=== PATIENT | female | born 1985 | race African-American/Black ===

== ENCOUNTER 2022-01-16 07:07 | Outpatient (REF) | payer OTHER, SELFPAY ==
--- NOTE | ~2022-01-16 | XR_ITS ---
EXAMINATION: XR CHEST 2 VIEWS CLINICAL INFORMATION: Cough. COMPARISON: Chest radiographs dated 08/25/2019. TECHNIQUE: Frontal and lateral views of the chest were obtained. FINDINGS: The heart, great vessels, pulmonary vasculature and mediastinum are normal. The lungs show no focal infiltrate, effusion or pneumothorax. There is no acute osseous abnormality. XR/XR chest 2V IMPRESSION: No active cardiopulmonary disease.
== END 2022-01-16 07:08 | disposition home or self-care (01) ==
LOC: HO.XRAY 07:07
PROVIDERS: PCP Internal Medicine; Visit Provider Nurse Practitioner Family
DX: R05.9 Cough, unspecified (principal)
CPT/HCPCS: 71046

== ENCOUNTER 2022-03-12 07:14 | Outpatient (REF) | payer OTHER, SELFPAY ==
[2022-03-12 07:29] LABS: MANUAL DIFF FLAG NO
[2022-03-12 07:42] LABS: Basophils Absolute Auto 0.1 X10*3/uL (0.0-0.2); Basophils Percent Auto 0.6 % (0-2); Eosinophils Absolute Auto 0.6 X10*3/uL (0.0-0.4); Eosinophils Percent Auto 7.1 % (0-4); Hematocrit 36.6 % (37.0-47.0); Hemoglobin 12.5 g/dl (12.0-16.0); Imm Gran Abs Auto 0.03 X10*3/uL (0.00-0.03); Imm Gran Pct Auto 0.4 % (0.0-0.4); Lymphocytes Absolute Auto 2.9 X10*3/uL (1.2-4.9); Lymphocytes Percent Auto 33.9 % (20-40); Mean Corpuscular HGB Conc 34.2 g/dl (31.0-35.0); Mean Corpuscular Hemoglobin 30.6 pg (27.0-33.0); Mean Corpuscular Volume 89.5 fL (80.0-98.0); Mean Platelet Volume 9.1 fL (9.4-12.3); Monocytes Absolute Auto 0.4 X10*3/uL (0.1-1.2); Monocytes Percent Auto 5.1 % (2-11); Neutrophils Absolute Auto 4.5 x10*3/uL (2.0-8.3); Neutrophils Percent Auto 52.9 % (45-73); Platelet Count 357 X10*3/uL (160-400); Red Blood Count 4.09 X10*6/uL (4.20-5.50); Red Cell Distribution Width 12.2 % (11.0-16.0); White Blood Count 8.5 X10*3/uL (4.8-10.8)
[2022-03-12 08:19] LABS: Alanine Aminotransferase 21 U/L (0-31); Alkaline Phosphatase 61 U/L (39-117); Anion Gap 10 (12-20); Aspartate Amino Transferase 35 U/L (5-31); Bilirubin Total 0.5 mg/dL (0.0-1.0); Blood Urea Nitrogen 8 mg/dL (9-16); Carbon Dioxide 23 mmol/L (22-29); Chloride 110 mmol/L (96-108); Cholesterol 177 mg/dL; Estimated Glomerular Filt Rate > 60; Glucose Fasting 99 mg/dL (60-99); HDL Cholesterol 45 mg/dL; LDL Cholesterol Calculated 117 mg/dl; Potassium 4.2 mmol/L (3.3-5.1); Sodium 139 mmol/L (135-145); Total Protein 7.1 g/dL (6.5-8.0); Triglycerides 75 mg/dL
[2022-03-12 08:39] LABS: Thyroid Stimulating Hormone 1.38 uIU/mL (0.32-4.0); Vitamin D 25-OH Total 12.1 ng/mL (>30)
== END 2022-03-12 07:15 | disposition home or self-care (01) ==
LOC: HO.LAB 07:14
PROVIDERS: PCP Internal Medicine; Visit Provider Internal Medicine
DX: J45.40 Moderate persistent asthma, uncomplicated (principal); E66.9 Obesity, unspecified; R53.83 Other fatigue; Z68.33 Body mass index [BMI] 33.0-33.9, adult
CPT/HCPCS: 36415; 80053; 80061; 82306; 84443; 85025

== ENCOUNTER 2022-11-18 16:11 | Outpatient (REF) | payer OTHER, SELFPAY ==
[2022-11-18 17:19] LABS: Anion Gap 12 (12-20); Blood Urea Nitrogen 13 mg/dL (9-16); Calcium 9.7 mg/dL (8.4-10.2); Carbon Dioxide 26 mmol/L (22-29); Chloride 107 mmol/L (96-108); Estimated Glomerular Filt Rate > 60; Glucose Random 88 mg/dL (60-115); Potassium 4.3 mmol/L (3.3-5.1); Sodium 141 mmol/L (135-145)
[2022-11-18 17:35] LABS: Vitamin D 25-OH Total 10.7 ng/mL (>30)
[2022-11-18 17:50] LABS: Folate 12.3 ng/mL (> or = 4.0); Vitamin B12 571 pg/mL (200-900)
== END 2022-11-18 16:12 | disposition home or self-care (01) ==
LOC: HO.LAB 16:11
PROVIDERS: PCP Internal Medicine; Visit Provider Nurse Practitioner Family
DX: R53.83 Other fatigue (principal); I10 Essential (primary) hypertension
CPT/HCPCS: 36415; 80048; 82306; 82607; 82746

== ENCOUNTER → 2023-01-25 09:11 | Outpatient (BNVA) | payer OTHER, SELFPAY | PROVIDERS: PCP Internal Medicine; Visit Provider Advanced Practice Midwife ==

== ENCOUNTER 2023-01-25 11:29 | Outpatient (REF) | payer OTHER, SELFPAY ==
--- NOTE | ~2023-01-25 | US_ITS ---
EXAMINATION: US OBSTETRICAL ULTRASOUND CLINICAL INFORMATION: Early with Nexplanon. Z33.1 COMPARISON: Pelvic ultrasound 02/07/2018. LMP: Unknown. TECHNIQUE: Ultrasound of the maternal pelvis is performed using transabdominal transducer. M-mode Doppler is also performed. FINDINGS: There is a single intrauterine gestational sac with visible yolk sac, embryo/fetus, and cardiac activity. There is no significant subchorionic hemorrhage or hematoma. HR: 156 beats per minute. CRL (crown rump length): 1.01 cm (7 weeks 1 day +/- 4 days). SARAH (estimated date of delivery): 09/12/2023 +/- 4 days. MATERNAL ADNEXA: The right maternal ovary measures 3.7 x 2.1 x 2.8 cm. Small follicle or corpus luteum within right ovary 2.3 x 1.9 x 2.0 cm. No surrounding hyperemia. The left maternal ovary measures 2.8 x 1.6 x 2.6 cm. There is no significant maternal adnexal mass. No maternal pelvic ascites. US/US OB <= 14 weeks fetus IMPRESSION: 1. Single intrauterine gestation with ultrasound gestational age of 7 weeks 1 day +/- 4 days. 2. Estimated date of delivery is 09/12/2023 +/- 4 days. 3. No maternal adnexal mass or pelvic ascites.
== END 2023-01-25 11:30 | disposition home or self-care (01) ==
LOC: HO.HMGCX 11:29
PROVIDERS: PCP Internal Medicine; Visit Provider Advanced Practice Midwife
DX: O09.529 Supervision of elderly multigravida, unspecified trimester (principal); O99.210 Obesity complicating pregnancy, unspecified trimester; O16.9 Unspecified maternal hypertension, unspecified trimester; Z30.46 Encounter for surveillance of implantable subdermal contraceptive; Z68.33 Body mass index [BMI] 33.0-33.9, adult; Z79.899 Other long term (current) drug therapy
CPT/HCPCS: 11982; 76801; 99202

== ENCOUNTER 2023-10-01 14:29 | Outpatient (AMB) | payer OTHER, SELFPAY ==
--- NOTE | 2023-10-01 14:35 | MHC.PC.OV ---
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: No Accompanied by: Self / Same As Patient Allergies No Known Allergies Allergy (Mild, Verified 04/06/23 16:27) NOT APPLICABLE Medication List - Last Reconciled 10/01/23 by RAMSEY Ji albuterol sulfate 90 mcg/actuation (ProAir HFA) 2 puffs inhalation Q4-6H PRN enalapril maleate 20 mg PO DAILY fluticasone propionate 44 mcg/actuation (Flovent HFA) 1 puff inhalation BID 30 days labetalol 600 mg PO TID loratadine (Allergy Relief (loratadine)) 10 mg PO DAILY PRN PNV,calcium 58-akqw-jyjmp acid 27 mg iron- 1 mg ( Vitamins Plus Low Iron) 1 tab PO DAILY Tobacco use date assessed: 12/04/22 HPI HPI Comments History of Present Illness Details 38-year old female past medical history significant for asthma and hypertension. Patient of last seen in April. Patient presents today for hospital discharge follow-up patient underwent primary section on 08/14/2023. Patient reports a few days later, bp shot up and she was kept in the hospital x1 week and received treatment with magnesium and was discharged trt with mag. Patient states when she went to follow up, her B/P was very elevated and she was re-admitted. Patient was readmitted for sustained severe range blood pressures in the setting of known superimposed preeclampsia with severe features. patient was treated with IV labetalol, hydralazine and nifedipine. Patient's blood pressure medication was titrated up to 600 mg labetalol t.i.d. and 5 mg enalapril was added. Patient currently on Labetolol 600 TID and Enalapril 20mg daily. Patient states b/p's have been running 150-160's/90's-100's at home. Patient states she can feel when her pressure is high, occasional headaches, pressure in her neck and her ears get really hot. Denies visual changes and abdominal pain. Patient also has hx of irregular heartbeat but has been feeling palpitations daily, denies lightheadedness,dizziness. Denies chest pain, however reports the other day she felt like a squeez in her chest and a quick release. Of Note patient states she was on a very low dose b/p medication and throughout her she was not on any b/p medication. [facility] Medical History Chronic cough Class 1 obesity with body mass index (BMI) of 33.0 to 33.9 in adult Fatigue Moderate persistent asthma Surgical History No pertinent past surgical history Family History Mother Diabetes Hypertension Lymphoma Father No problems noted. Social History Housing: Apartment Patient Tobacco Use Status: Never used Tobacco e-Cigarette/Vaping Use: Never Used Second Hand Smoke Exposure: No service: No Current occupational status: employed Current occupational exposures/hazards: No Cognitive needs: No Hearing needs: No Vision needs: No Questionnaire Thrive Questionnaire Date Thrive assessed: 12/04/22 ORALIA-7 AMB Questionnaire ORALIA-7 Date ORALIA - 7 assessed: 12/04/22 Source: Developed by Drs. Monty Soler, Veronica Blake, Nathaniel Augustine and colleagues, with an educational poncho from [employer]. Review of Systems Const Denies chills, Denies fatigue, Denies fever(s) and Denies poor appetite Eyes Denies no additional complaints ENT Reports Normal hearing present Card Denies chest pain, Denies syncope, Denies rapid heart rate and Denies dyspnea Resp Denies cough and Denies dyspnea GI Denies change in stool character, Denies constipation, Denies diarrhea, Denies nausea and Denies vomiting Denies urinary frequency, Denies dysuria and Denies urinary urgency Neuro Reports Normal hearing present, Denies confusion and Denies syncope Psych Denies confusion Endo Denies fatigue Physical exam (Primary Care) Vital Signs: Last Vital Signs Pulse 90 10/01/23 14:36 BP 150/98 H 10/01/23 14:36 Pulse Ox 98 10/01/23 14:36 Oxygen Delivery Method Room Air 10/01/23 14:36 BMI result Body Mass Index 31.2 Tobacco/Smoking Status: Tobacco use Status Tobacco use date assessed 12/04/22 10/01/23 14:36 Patient Tobacco Use Status Never used Tobacco 10/01/23 14:36 Tobacco use type 01/25/23 08:32 e-Cigarette/Vaping Use Never Used 10/01/23 14:36 Thrive Assessment: Date of Thrive Assessment Date Thrive assessed 12/04/22 10/01/23 14:36 Const General: No confusion Orientation/consciousness: No confusion HENMT Head: Yes normocephalic and Yes atraumatic Eyes Conjunctivae: conjunctivae normal Chest Chest palpation & inspection: normal inspection of the chest Resp Effort & Inspection: normal respiratory effort Auscultation: clear to auscultation bilaterally, no crackles, no rhonchi and no wheezes Cardio Rate: regular rate Rhythm: regular rhythm Heart sounds: S1 normal heart sound present and S2 normal heart sound present GI Inspection: Yes normal to inspection Neuro General: No confusion Cranial nerves: Yes Normal hearing present Extrem General: No edema Assessment and Plan Assessment & Plan (1) Hypertension: Code(s): I10 - Essential (primary) hypertension Plan: Enalapril increased to 30mg daily. Continue on labetalol 600mg TID. Follow low salt diet and exercise. 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 Referral entered to cardiology for uncontrolled HTN and palpitations. Patient agreeable to plan of care. Plan Follow up in 1 month with pcp or sooner if needed. Orders: Orders ECG 3 day holter monitor 10/01/23 R00.2 - Palpitations Comprehensive Met. Panel 10/01/23 I10 - Essential (primary) hypertension Complete Blood Count Auto Diff 10/01/23 Z13.0 - Encounter for screening for diseases of the blood and blood-forming organs and certain disorders involving the immune mechanism ECG 12 lead EKG 10/01/23 I10 - Essential (primary) hypertension, R00.2 - Palpitations Referrals Cardiology Referral I10 - Essential (primary) hypertension, R00.2 - Palpitations Medications: New enalapril maleate 10 mg PO DAILY 30 tabs 3RF enalapril maleate 20 mg PO DAILY 30 tabs 3RF Coding Level of Care Code Est Pt Level 3 (08072) Diagnoses Hypertension I10 Palpitations R00.2
[2023-10-01 14:36] VITALS: BP 150/98; PULSE 90; O2SAT 98; BMI 31.2
== END 2023-10-01 15:01 | disposition home or self-care (01) ==
PROVIDERS: PCP Internal Medicine; Visit Provider Nurse Practitioner Family
DX: I10 Essential (primary) hypertension (principal); R00.2 Palpitations; J45.40 Moderate persistent asthma, uncomplicated
CPT/HCPCS: 99213

== ENCOUNTER → 2023-10-11 12:00 | Outpatient (REF) | payer OTHER, SELFPAY ==
--- NOTE | 2023-10-11 12:04 | HM_ITS ---
Conclusion: 1. Patient was monitored for total period of 2 days and 20 hours 2. Baseline was normal sinus rhythm with average heart rate of 75 beats per minute 3. No significant pauses noted 4. Occasional PACs noted 5. No patient reported events MTDD
--- NOTE | 2023-10-11 12:04 | ECG_ITS ---
Test Reason : PALPITATION HTN Blood Pressure : / mmHG Vent. Rate : 068 BPM Atrial Rate : 068 BPM P-R Int : 162 ms QRS Dur : 082 ms QT Int : 410 ms P-R-T Axes : 034 019 031 degrees QTc Int : 435 ms Normal sinus rhythm Normal ECG When compared with ECG of 29-JUL-2014 13:01, No significant change was found Referred By: Meenu Allison Electronically Signed By:Virgilio Mina
[2023-10-11 12:29] LABS: MANUAL DIFF FLAG NO
[2023-10-11 13:48] LABS: Basophils Percent Auto 0.5 % (0-2); Eosinophils Absolute Auto 0.3 X10*3/uL (0.0-0.4); Eosinophils Percent Auto 4.3 % (0-4); Hematocrit 35.7 % (37.0-47.0); Hemoglobin 11.8 g/dl (12.0-16.0); Imm Gran Abs Auto 0.02 X10*3/uL (0.00-0.03); Imm Gran Pct Auto 0.3 % (0.0-0.4); Lymphocytes Absolute Auto 1.7 X10*3/uL (1.2-4.9); Lymphocytes Percent Auto 27.5 % (20-40); Mean Corpuscular HGB Conc 33.1 g/dl (31.0-35.0); Mean Corpuscular Hemoglobin 29.1 pg (27.0-33.0); Mean Corpuscular Volume 88.1 fL (80.0-98.0); Mean Platelet Volume 9.8 fL (9.4-12.3); Monocytes Absolute Auto 0.3 X10*3/uL (0.1-1.2); Monocytes Percent Auto 4.8 % (2-11); Neutrophils Absolute Auto 3.9 x10*3/uL (2.0-8.3); Neutrophils Percent Auto 62.6 % (45-73); Platelet Count 351 X10*3/uL (160-400); Red Blood Count 4.05 X10*6/uL (4.20-5.50); Red Cell Distribution Width 12.8 % (11.0-16.0); White Blood Count 6.2 X10*3/uL (4.8-10.8)
[2023-10-11 14:15] LABS: Alanine Aminotransferase 28 U/L (0-31); Albumin Level 4.5 g/dL (3.5-5.0); Alkaline Phosphatase 93 U/L (39-117); Anion Gap 11 (12-20); Aspartate Amino Transferase 39 U/L (5-31); Bilirubin Total 0.4 mg/dL (0.0-1.0); Blood Urea Nitrogen 15 mg/dL (9-16); Calcium 9.8 mg/dL (8.4-10.2); Carbon Dioxide 24 mmol/L (22-29); Chloride 110 mmol/L (96-108); Estimated Glomerular Filt Rate > 60; Glucose Random 80 mg/dL (60-115); Potassium 4.2 mmol/L (3.3-5.1); Sodium 141 mmol/L (135-145)
== END ==
LOC: HO.CARD 12:00
PROVIDERS: PCP Internal Medicine; Visit Provider Nurse Practitioner Family
DX: Z13.0 Encounter for screening for diseases of the blood and blood-forming organs and certain disorders involving the immune mechanism (principal); R00.2 Palpitations; I10 Essential (primary) hypertension
CPT/HCPCS: 36415; 80053; 85025; 93005; 93242

== ENCOUNTER → 2023-10-11 12:04 | Outpatient (BNV) | payer OTHER, SELFPAY | PROVIDERS: PCP Internal Medicine; Visit Provider Internal Medicine Cardiovascular Disease | DX: R00.2 Palpitations (principal) | CPT/HCPCS: 93010; 93244 ==

== ENCOUNTER 2024-01-03 12:50 | Outpatient (AMB) | payer OTHER, SELFPAY ==
--- NOTE | 2024-01-03 12:57 | MHC.OFFVIS ---
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 Intake Note: New patient with ekg c/o flutters at times Lamp Wirer Required: No Allergies No Known Allergies Allergy (Mild, Verified 04/06/23 16:27) NOT APPLICABLE Medication List - Last Reconciled 01/03/24 by Justin Villasenor MD albuterol sulfate 90 mcg/actuation (ProAir HFA) 2 puffs inhalation Q4-6H PRN enalapril maleate 10 mg PO DAILY fluticasone propionate 44 mcg/actuation (Flovent HFA) 1 puff inhalation BID 30 days labetalol 600 mg (2 x 300 mg) PO TID 90 days loratadine (Allergy Relief (loratadine)) 10 mg PO DAILY PRN nifedipine ER 30 mg PO DAILY 30 days PNV,calcium 75-tewb-cracx acid 27 mg iron- 1 mg ( Vitamins Plus Low Iron) 1 tab PO DAILY HPI HPI Comments History of Present Illness Details Thank you for referring Mari in cardiology consultation today for management of high blood pressure. She has a pleasant 38-year-old woman who just had her 4th child about 4 months ago. She had mild hypertension prior to that being on low-dose lisinopril therapy. However after her childbirth she was noted to have significantly elevated blood pressure consistent with preeclampsia/eclampsia. Patient will was then treated with medicines and then came for follow-up and was noted to have markedly elevated blood pressure and had to be admitted to the hospital for about 7 days. She was then started on the regimen that she is currently on. She has been referred here for further management of blood pressure. She says gradually since starting this medications a blood pressure have down trended. She had history of fluttering in the chest and elevated heart rate although Holter monitor done in October showed average heart rate of 75 beats per minute with occasional PACs. She says overall she has been doing better. She has not had any major symptoms of irregular heartbeat or palpitations. She denies any lightheadedness, syncope. No exertional symptoms. 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 She has no heart failure symptoms. [facility] Medical History Class 1 obesity with body mass index (BMI) of 33.0 to 33.9 in adult Chronic cough Fatigue Moderate persistent asthma Surgical History No pertinent past surgical history Family History Mother Diabetes Hypertension Lymphoma Father No problems noted. Social History Housing: Apartment Patient Tobacco Use Status: Never used Tobacco e-Cigarette/Vaping Use: Never Used Second Hand Smoke Exposure: No service: No Current occupational status: employed Current occupational exposures/hazards: No Cognitive needs: No Hearing needs: No Vision needs: No Review of Systems Const Denies chills, Denies daytime sleepiness, Denies fatigue, Denies fever(s), Denies frequent falls, Denies poor appetite, Denies snoring, Denies stops breathing during sleep, Denies weakness, Denies weight gain and Denies weight loss Eyes Denies loss of vision ENT Denies dizziness and Denies hearing loss Card Denies chest pain, Denies claudication, Denies leg edema, Denies lightheadedness, Denies palpitations, Denies dyspnea, Denies dyspnea on exertion and Denies orthopnea Resp Denies cough, Denies excessive phlegm production, Denies dyspnea, Denies dyspnea on exertion, Denies snoring and Denies wheezing GI Denies abdominal pain, Denies hematochezia, Denies change in bowel habits, Denies nausea and Denies vomiting Denies urinary frequency and Denies dysuria Musc Denies arthralgias, Denies muscle weakness, Denies numbness and Denies other (frequent falls) Skin/Breast Denies nail changes and Denies rash Neuro Denies Abnormal speech present, Denies dizziness, Denies frequent falls, Denies loss of vision, Denies memory loss, Denies numbness and Denies weakness Psych Denies depression and Denies memory loss Endo Denies fatigue and Denies palpitations Michael/Lymph Reports easy bruising and Reports other (anemia) Aller/Immun Denies wheezing Physical Exam Vital Signs: Last Vital Signs Pulse 99 01/03/24 13:16 BP 118/60 01/03/24 13:16 BMI result Body Mass Index 31.2 Const General: cooperative, comfortable, no acute distress, alert, awake and Physically active Nutritional Appearance: overweight Orientation/consciousness: patient oriented x3 Limitations: no limitations HEENT Head: Yes normocephalic and Yes atraumatic Neck Neck: Yes trachea midline, Yes supple and Yes no JVD Resp Effort & Inspection: normal respiratory effort Auscultation: clear to auscultation bilaterally Cardio Jugular venous distension: no JVD Palpation: normal PMI Rate: regular rate Rhythm: regular rhythm Heart sounds: S1 normal heart sound present, S2 normal heart sound present, no click, no gallops, no murmurs and no rubs GI Auscultation: normal bowel sounds Skin General skin exam: no rashes or lesions noted Neuro General: patient oriented x3 and no focal motor deficits Speech: No Abnormal speech present Extrem General: Yes no clubbing, cyanosis or edema Psych Appearance: grossly normal Office Procedures EKG Details: EKG shows normal sinus rhythm, septal infarct his due to lead please placement of V1 to V2, and not actual infarct pattern. [id number], Complete Assessment & Plan Assessment & Plan (1) Hypertension: Code(s): I10 - Essential (primary) hypertension Plan: Hypertension which is exacerbated by and is suggestive preeclampsia eclampsia. This got blood pressure tend to get better over the next 6-9 months. Her blood pressures been trending down. I have advised her to keep a log of her blood pressure. Her blood pressure continues to remain normal or trend down below 110 systolic will slowly taper her medications. I would start with nifedipine therapy. Advised to monitor blood pressure closely. Advised to maintain adequate hydration. Advised to maintain low-salt diet. Stress mitigation strategies were advised. Her symptoms of palpitation probably related to occasional PACs are benign and was discussed with her. Avoidance of stimulants was discussed. Will obtain echocardiogram to evaluate for LV systolic and diastolic function. Follow up in the clinic in 3 months time, sooner p.r.n.. Thank you for allowing me to partake in the care Coding Level of Care Code New Pt Level 3 (30931) Diagnoses Hypertension I10 CPT Codes EKG - CPT: 17669-[id number], Complete ([id number])
[2024-01-03 13:16] VITALS: BP 118/60; PULSE 99; BMI 31.2
== END 2024-01-03 15:02 | disposition home or self-care (01) ==
PROVIDERS: PCP Internal Medicine; Visit Provider Internal Medicine Cardiovascular Disease
DX: I10 Essential (primary) hypertension (principal); Z33.1 Pregnant state, incidental; I49.1 Atrial premature depolarization
CPT/HCPCS: 93010; 99213

== ENCOUNTER → 2024-01-03 12:50 | Outpatient (BNVA) | payer OTHER, SELFPAY | PROVIDERS: PCP Internal Medicine; Visit Provider Internal Medicine Cardiovascular Disease | DX: I10 Essential (primary) hypertension (principal) | CPT/HCPCS: 93005; 99212 ==

== ENCOUNTER 2024-01-04 14:16 | Outpatient (AMB) | payer OTHER, SELFPAY ==
--- NOTE | 2024-01-04 14:18 | A.OFFPC_ITS ---
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: No Accompanied by: Child Allergies No Known Allergies Allergy (Mild, Verified 01/04/24 14:33) NOT APPLICABLE Medication List - Last Reconciled 01/04/24 by Ann Delgado MD enalapril maleate 10 mg PO DAILY fluticasone propionate 44 mcg/actuation (Flovent HFA) 1 puff inhalation BID 30 days labetalol 600 mg (2 x 300 mg) PO TID 90 days loratadine (Allergy Relief (loratadine)) 10 mg PO DAILY PRN nifedipine ER 30 mg PO DAILY 30 days PNV,calcium 95-gsgr-wqcty acid 27 mg iron- 1 mg ( Vitamins Plus Low Iron) 1 tab PO DAILY Tobacco use date assessed: 01/04/24 Dental Screening Dental Screen Date: 01/04/24 Did you have a dental visit in the last 12 months?: No Did you have a dental problem in the last 6 months where you did not have access to dental care?: No Was dental information given to patient?: Patient has dentist HPI HPI Comments History of Present Illness Details This is a 38-year-old female with hypertension, allergies and moderate asthma that comes today for follow-up on her conditions. Blood pressure stable. She is currently breast-feeding and I will discontinue enalapril for now. She should monitor her blood pressure. On antihistamines as needed for allergies. On long-acting inhaler for her asthma and use rescue inhaler about once a month. No chest pain or shortness of breath. [facility] Medical History Class 1 obesity with body mass index (BMI) of 33.0 to 33.9 in adult Chronic cough Fatigue Moderate persistent asthma Surgical History History of tubal ligation History of Family History Mother Diabetes Hypertension Lymphoma Father No problems noted. Social History Housing: Apartment Patient Tobacco Use Status: Never used Tobacco e-Cigarette/Vaping Use: Never Used Second Hand Smoke Exposure: No service: No Current occupational status: employed Current occupational exposures/hazards: No Cognitive needs: No Hearing needs: No Vision needs: No Questionnaire PHQ-9 Over the last 2 weeks, how often have you been bothered by any of the following problems? 1. Little interest or pleasure in doing things: not at all 2. Feeling down, depressed, or hopeless: not at all 3. Trouble falling or staying asleep, or sleeping too much: not at all 4. Feeling tired or having little energy: not at all 5. Poor appetite or overeating: not at all 6. Feeling bad about yourself - or that you are a failure or have let yourself or your family down: not at all 7. Trouble concentrating on things, such as reading the newspaper or watching television: not at all 8. Moving or speaking so slowly that other people could have noticed. Or the opposite - being so fidgety or restless that you have been moving around a lot more than usual: not at all 9. Thoughts that you would be better off or of hurting yourself in some way: not at all Total score: 0 Depression Screening Interpretation: Negative Depression Screening Done: Yes [id number] - PHQ-9 Billing: Yes Source: Developed by Drs. Monty Soler, Veronica Blake, Nathaniel Augustine and colleagues, with an educational poncho from [employer]. Thrive Questionnaire Date Thrive assessed: 01/04/24 I am a: Patient What is your living situation today?: I have a steady place to live Within the past 12 months, did the food you bought not last and you didn't have the money to get more?: Never true Within the past 12 months, did you worry whether your food would run out before you got money to buy more?: Never true Do you have trouble paying for medicines?: No Do you have trouble getting transportation to medical appointments?: No Do you have trouble paying your heating and electricity bill?: No Do you have trouble taking care of your child, family member or friend?: No Do you have trouble with day-to-day activities such as bathing, preparing meals, shopping, managing finances, etc.?: No Are you currently unemployed and looking for a job?: No Are you interested in more education?: No Please select the resources that you would like help with: None Currently or been in a relationship where the following occur: no concerns reported THRIVE Score: 0 AUDIT C Alcohol Use Questionnaire (AUDIT-C) 1. How often do you have a drink containing alcohol?: Never Total Score: 0 ORALIA-7 AMB Questionnaire ORALIA-7 Date ORALIA - 7 assessed: 01/04/24 Feeling nervous, anxious, or on edge: 0 = Not at all Not being able to stop or control worryin = Not at all Worrying too much about different things: 0 = Not at all Trouble relaxin = Not at all Being so restless that it is hard to sit still: 0 = Not at all Becoming easily annoyed or irritable: 0 = Not at all Feeling afraid as if something awful might happen: 0 = Not at all Total ORALIA-7 score (0-4 normal; 5-9 mild; 10-14 moderate; 15-21 severe): 0 Source: Developed by Drs. Monty Soler, Veronica Blake, Nathaniel Augustine and colleagues, with an educational poncho from [employer]. ORALIA-7 Assessment Billing ORALIA-7 Assessment Tool: ORALIA-7 Assessment 70704 Review of Systems Const All systems reviewed & are unremarkable except as noted in HPI and below Eyes Reports no additional complaints, Denies change in vision and Denies other visual disturbances Card Denies chest pain at rest, Denies chest pain with activity, Denies edema, Denies irregular heart rhythm, Denies claudication, Denies dyspnea, Denies dyspnea on exertion, Denies orthopnea, Denies paroxysmal nocturnal dyspnea and Denies slow heart rate Resp Denies cough, Denies dyspnea and Denies dyspnea on exertion GI Denies abdominal pain, Denies change in bowel habits, Denies excessive flatus, Denies nausea and Denies vomiting Denies urinary incontinence, Denies urinary hesitancy and Denies urinary urgency Musc Denies abnormal gait, Denies atrophy, Denies deformity and Denies limited range of motion Skin/Breast Denies bleeding lesions, Denies changing lesions and Denies rash Neuro Denies abnormal gait and Denies lack of coordination Physical exam (Primary Care) Vital Signs: Last Vital Signs BP 132/80 01/04/24 14:19 BMI result Body Mass Index 30.6 Tobacco/Smoking Status: Tobacco use Status Tobacco use date assessed 01/04/24 01/04/24 14:27 Patient Tobacco Use Status Never used Tobacco 01/04/24 14:27 Tobacco use type 01/25/23 08:32 e-Cigarette/Vaping Use Never Used 01/04/24 14:27 PHQ-9: PHQ-9 Score PHQ-9: Total score 0 01/04/24 15:09 Depression Screening Interpretation: Negative Thrive Assessment: Date of Thrive Assessment Date Thrive assessed 01/04/24 01/04/24 14:27 Currently or been in a relationship where the following occur: no concerns reported Eyes General: appearance normal, both eyes and all related structures Eyelids: Yes eyelids normal Conjunctivae: conjunctivae normal Neck Neck: Yes normal visual inspection and Yes supple Resp Effort & Inspection: normal respiratory effort Auscultation: clear to auscultation bilaterally Cardio Jugular venous distension: no JVD Rate: regular rate Rhythm: regular rhythm Heart sounds: S1 normal heart sound present and S2 normal heart sound present Extrem General: Yes full ROM Assessment and Plan Assessment & Plan (1) Hypertension: Code(s): I10 - Essential (primary) hypertension Plan: Continue nifedipine and labetalol. Discontinue enalapril. Blood pressure goal is equal or less than 130/80. (2) Allergies: Code(s): T78.40XA - Allergy, unspecified, initial encounter Plan: Continue antihistamines as needed. (3) Moderate persistent asthma: Code(s): J45.40 - Moderate persistent asthma, uncomplicated Plan: Continue long-acting inhaler. Use rescue inhaler as needed. Orders: Orders Vitamin D 25-OH Total Today E55.9 - Vitamin D deficiency, unspecified Comprehensive Sullivan. Panel Fast Today I10 - Essential (primary) hypertension Lipid Panel Today I10 - Essential (primary) hypertension Medications: Discontinued enalapril maleate Discontinued Reason: Patient Completed Course 10 mg PO DAILY 30 tabs 3RF Coding Level of Care Code Est Pt Level 3 (56646) Diagnoses Hypertension I10 Allergies T78.40XA Moderate persistent asthma J45.40 Additional Codes ORALIA-7 Assessment Billing - ORALIA-7 Assessment Tool: ORALIA-7 Assessment 21764 ([id number]) Time Spent (min) 19
[2024-01-04 14:19] VITALS: BP 132/80; BMI 30.6
== END 2024-01-04 14:43 | disposition home or self-care (01) ==
PROVIDERS: PCP Internal Medicine; Visit Provider Internal Medicine
DX: I10 Essential (primary) hypertension (principal); T78.40XA Allergy, unspecified, initial encounter; J45.40 Moderate persistent asthma, uncomplicated
CPT/HCPCS: 99213

== ENCOUNTER 2024-04-06 13:15 | Outpatient (AMB) | payer OTHER, SELFPAY ==
--- NOTE | 2024-04-06 13:17 | A.OFFVIS_ITS ---
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 She is taking labetalol only once a day at 600 mg. She said when she is taking 3 times a day she was often getting blood pressure in 108 systolic range and was getting lightheaded with it. She therefore started taking labetalol only once a day. Her blood pressures are mostly in the 130 systolic range. She denies any other cardiac symptoms. Continues to take nifedipine. Has not had her echocardiogram for unclear reasons. [facility] Medical History Class 1 obesity with body mass index (BMI) of 33.0 to 33.9 in adult Chronic cough Fatigue Moderate persistent asthma Surgical History History of tubal ligation History of Family History Mother Diabetes Hypertension Lymphoma Father No problems noted. Social History Housing: Apartment Patient Tobacco Use Status: Never used Tobacco e-Cigarette/Vaping Use: Never Used Second Hand Smoke Exposure: No service: No Current occupational status: employed Current occupational exposures/hazards: No Cognitive needs: No Hearing needs: No Vision needs: No Review of Systems Const Denies chills, Denies fatigue, Denies fever(s), Denies frequent falls, Denies weakness, Denies weight gain and Denies weight loss ENT Denies dizziness Card Denies chest pain, Denies leg edema, Denies lightheadedness, Denies palpitations, Denies dyspnea, Denies dyspnea on exertion, Denies orthopnea and Denies other (loss of consciousness) Resp Denies cough, Denies dyspnea and Denies dyspnea on exertion GI Denies hematochezia and Denies change in stool character Musc Denies abnormal gait, Denies muscle weakness, Denies numbness, Denies radiating pain into limb and Denies tingling Neuro Denies Abnormal speech present, Denies abnormal gait, Denies dizziness, Denies frequent falls, Denies numbness, Denies tingling and Denies weakness Endo Denies fatigue and Denies palpitations Physical Exam Vital Signs: BMI result Body Mass Index 30.1 Const General: cooperative, comfortable, no acute distress, alert, awake and Physically active Nutritional Appearance: overweight Orientation/consciousness: patient oriented x3 Limitations: no limitations HEENT Head: Yes normocephalic and Yes atraumatic Neck Neck: Yes trachea midline, Yes supple and Yes no JVD Resp Effort & Inspection: normal respiratory effort Auscultation: clear to auscultation bilaterally Cardio Jugular venous distension: no JVD Palpation: normal PMI Rate: regular rate Rhythm: regular rhythm Heart sounds: S1 normal heart sound present, S2 normal heart sound present, no click, no gallops, no murmurs and no rubs GI Auscultation: normal bowel sounds Skin General skin exam: no rashes or lesions noted Neuro General: patient oriented x3 and no focal motor deficits Speech: No Abnormal speech present Extrem General: Yes no clubbing, cyanosis or edema Psych Appearance: grossly normal Assessment & Plan Assessment & Plan (1) Hypertension: Code(s): I10 - Essential (primary) hypertension Category: Medical Plan: Recommend not to take labetalol just once a day as it is not a 24 hour drug. Have advised her to at least cut it into twice a day at 300 mg b.i.d.. Continue nifedipine therapy. Goals of therapy were discussed with target goal blood pressure near 120/80. Recommend echocardiogram near future. Low-salt diet was recommended. Continue monitor blood pressure at home maintain a log and give us a call in 1 month's time. Will follow up in the clinic in 1 year's time, sooner p.r.n.. Thank you for allowing me to partake in her care Orders: Orders CA echo transthoracic complete Today I10 - Essential (primary) hypertension Medications: Changed From labetalol 600 mg PO ONCE I10 - Essential (primary) hypertension To labetalol 300 mg PO BID I10 - Essential (primary) hypertension Coding Level of Care Code Est Pt Level 3 (77858) Diagnoses Hypertension I10
[2024-04-06 13:18] VITALS: BP 136/84; PULSE 98; BMI 30.1
== END 2024-04-06 13:39 | disposition home or self-care (01) ==
PROVIDERS: PCP Internal Medicine; Visit Provider Internal Medicine Cardiovascular Disease
DX: I10 Essential (primary) hypertension (principal)
CPT/HCPCS: 99213

== ENCOUNTER → 2024-04-06 13:15 | Outpatient (BNVA) | payer OTHER, SELFPAY | PROVIDERS: PCP Internal Medicine; Visit Provider Internal Medicine Cardiovascular Disease | DX: I10 Essential (primary) hypertension (principal) | CPT/HCPCS: 99212 ==

== ENCOUNTER 2024-04-11 17:27 | Outpatient (AMB) | payer OTHER, SELFPAY ==
[2024-04-11 17:31] VITALS: BP 140/90; BMI 30.6
--- NOTE | 2024-04-11 17:31 | MHC.PC.OV ---
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 Pap smear was less than 5 years ago and was normal. No chest pain or shortness on breath. PENDING SALE TO [facility] Medical History Class 1 obesity with body mass index (BMI) of 33.0 to 33.9 in adult Chronic cough Fatigue Moderate persistent asthma Surgical History History of tubal ligation History of Family History (Updated 04/11/24 @ 17:39 by Ann Delgado MD) Mother Diabetes Hypertension Lymphoma Father Hypertension Pancreatic cancer Social History Housing: Apartment Patient Tobacco Use Status: Never used Tobacco e-Cigarette/Vaping Use: Never Used Second Hand Smoke Exposure: No service: No Current occupational status: employed Current occupational exposures/hazards: No Cognitive needs: No Hearing needs: No Vision needs: No Questionnaire Thrive Questionnaire Date Thrive assessed: 01/04/24 ORALIA-7 AMB Questionnaire ORALIA-7 Date ORALIA - 7 assessed: 01/04/24 Source: Developed by Drs. Monty Soler, Veronica Blake, Nathaniel Augustine and colleagues, with an educational poncho from [employer]. Review of Systems Const All systems reviewed & are unremarkable except as noted in HPI and below Card Denies chest pain at rest, Denies chest pain with activity, Denies edema, Denies irregular heart rhythm, Denies claudication, Denies dyspnea, Denies dyspnea on exertion, Denies orthopnea, Denies paroxysmal nocturnal dyspnea and Denies slow heart rate Resp Denies cough, Denies dyspnea and Denies dyspnea on exertion GI Denies abdominal pain, Denies change in bowel habits, Denies excessive flatus, Denies nausea and Denies vomiting Skin/Breast Denies bleeding lesions, Denies changing lesions and Denies rash Neuro Denies lack of coordination Physical exam (Primary Care) Vital Signs: Last Vital Signs BP 140/90 H 04/11/24 17:31 BMI result Body Mass Index 30.6 Tobacco/Smoking Status: Tobacco use Status Tobacco use date assessed 01/04/24 04/11/24 17:34 Patient Tobacco Use Status Never used Tobacco 04/11/24 17:34 Tobacco use type 01/25/23 08:32 e-Cigarette/Vaping Use Never Used 04/11/24 17:34 Thrive Assessment: Date of Thrive Assessment Date Thrive assessed 01/04/24 04/11/24 17:34 Const Orientation/consciousness: patient oriented x3 HENMT Head: Yes normal to inspection, Yes normocephalic and Yes atraumatic Ears: external ears normal Eyes General: appearance normal, both eyes and all related structures Eyelids: Yes eyelids normal Conjunctivae: conjunctivae normal Neck Neck: Yes normal visual inspection and Yes supple Resp Effort & Inspection: normal respiratory effort Auscultation: clear to auscultation bilaterally Cardio Jugular venous distension: no JVD Rate: regular rate Rhythm: regular rhythm Heart sounds: S1 normal heart sound present and S2 normal heart sound present GI Inspection: Yes normal to inspection Palpation (GI): Soft to palpation and nontender Auscultation: normal bowel sounds Skin General skin exam: no rashes or lesions noted Neuro General: patient oriented x3 and no focal motor deficits Extrem General: Yes full ROM Psych Appearance: grossly normal Assessment and Plan Assessment & Plan (1) Physical exam: Code(s): Z00.00 - Encounter for general adult medical examination without abnormal findings Plan: Repeat in a year. Orders: Orders Lipid Panel Today E78.5 - Hyperlipidemia, unspecified Comprehensive [place]. Panel Fast Today Z00.00 - Encounter for general adult medical examination without abnormal findings Medications: Refilled loratadine (Allergy Relief (loratadine)) 10 mg PO DAILY PRN 30 tabs 1RF allergy symptoms T78.40XA - Allergy, unspecified, initial encounter Coding Level of Care Code Est Pt Prev Care 18-39y(67988) Diagnoses Physical exam Z00.00 Time Spent (min) 33
[2024-04-11 17:49] VITALS: BP 138/85
== END 2024-04-11 17:45 | disposition home or self-care (01) ==
PROVIDERS: PCP Internal Medicine; Visit Provider Internal Medicine
DX: Z00.00 Encounter for general adult medical examination without abnormal findings (principal)
CPT/HCPCS: 99395

== ENCOUNTER 2025-07-16 06:41 | Outpatient (REF) | payer OTHER, SELFPAY ==
[2025-07-16 06:53] LABS: MANUAL DIFF FLAG NO
[2025-07-16 07:23] LABS: Hematocrit 36.1 % (37.0-47.0); Hemoglobin 12.4 g/dl (12.0-16.0); Imm Gran Abs Auto 0.02 X10*3/uL (0.00-0.03); Imm Gran Pct Auto 0.2 % (0.0-0.4); Lymphocytes Absolute Auto 2.5 X10*3/uL (1.2-4.9); Mean Corpuscular HGB Conc 34.3 g/dl (31.0-35.0); Mean Corpuscular Hemoglobin 30.7 pg (27.0-33.0); Mean Corpuscular Volume 89.4 fL (80.0-98.0); NRBC Abs Auto 0.000 X10*3/uL (0.0-0.012); NRBC Pct Auto 0.0 /100WBC (0.0-0.2); Platelet Count 350 X10*3/uL (160-400); Red Blood Count 4.04 X10*6/uL (4.20-5.50); White Blood Count 8.2 X10*3/uL (4.8-10.8)
[2025-07-16 07:51] LABS: Microalbum/Creatinine Ratio Ur 14.1 ug/mg cr (<30)
[2025-07-16 07:56] LABS: Alanine Aminotransferase 17 U/L (0-31); Albumin Level 4.6 g/dL (3.5-5.0); Alkaline Phosphatase 70 U/L (39-117); Anion Gap 11 (12-20); Aspartate Amino Transferase 47 U/L (5-31); Blood Urea Nitrogen 11 mg/dL (9-16); Calcium 8.8 mg/dL (8.4-10.2); Carbon Dioxide 23 mmol/L (22-29); Chloride 109 mmol/L (96-108); Cholesterol 180 mg/dL (<200); Estimated Glomerular Filt Rate > 60; HDL Cholesterol 52 mg/dL (>40); Iron 94 mcg/dL (30-160); Percent Iron Saturation 34 % (15-50); Potassium 4.4 mmol/L (3.3-5.1); Sodium 139 mmol/L (135-145); Total Iron Binding Capacity 276 mcg/dL (228-428); Total Protein 7.7 g/dL (6.5-8.0); Triglycerides 64 mg/dL (<150); Unsaturated Iron Binding 182 ug/dL
[2025-07-16 08:11] LABS: Thyroid Stimulating Hormone 4.03 uIU/mL (0.32-4.0)
[2025-07-16 08:24] LABS: Folate 11.8 ng/mL (> or = 4.0); Vitamin B12 590 pg/mL (200-900)
== END 2025-07-16 06:42 | disposition home or self-care (01) ==
LOC: HO.LAB 06:41
PROVIDERS: PCP Internal Medicine; Visit Provider Internal Medicine
DX: R53.83 Other fatigue (principal); E78.5 Hyperlipidemia, unspecified; I10 Essential (primary) hypertension; D64.9 Anemia, unspecified; E55.9 Vitamin D deficiency, unspecified; R80.9 Proteinuria, unspecified; E53.8 Deficiency of other specified B group vitamins
CPT/HCPCS: 36415; 80053; 80061; 82043; 82306; 82570; 82607; 82746; 83540; 84443; 85025